=== PATIENT | male | born 1985 | race Caucasian/White ===

== ENCOUNTER 2019-02-12 11:02 | Emergency (ER) | payer OTHER ==
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
--- NOTE | 2019-02-12 12:03 | RADIOLOGY REPORT (SQ) ---
EXAM DESCRIPTION: CLAVICLE LEFT COMPLETED DATE/TIME: 02/12/2019 11:34 am REASON FOR STUDY: bed 18 +deformity +tenderness COMPARISON: None. NUMBER OF VIEWS: Two views. TECHNIQUE: Frontal and angled images were acquired of the left clavicle. LIMITATIONS: None. FINDINGS: MINERALIZATION: Normal. BONES: Acute spiral fracture mid 3rd left clavicle, with butterfly fragments present, mild over ridin g of fracture fragments SOFT TISSUES: No obvious swelling or foreign body. OTHER: No pneumothorax. No widening of the AC joint or widening of the coracoclavicular interval IMPRESSION: Acute spiral fracture mid 3rd left clavicle with butterfly fragments. Mild over riding of fracture fragments. TECHNICAL DOCUMENTATION: JOB ID: [id number] [employer]- All Rights Reserved Reading location - IP/workstation name: [email or web address]
[2019-02-12] MEDS ORDERED: FENTANYL CITRATE INJ/PF 100 MCG/2 ML AMPUL IV ONE (12:34)
[2019-02-12 13:51] VITALS: BP 143/95
== END 2019-02-12 13:51 | disposition home or self-care (01) ==
LOC: ER 11:02
DX: S42.022A Displaced fracture of shaft of left clavicle, initial encounter for closed fracture (principal); S80.212A Abrasion, left knee, initial encounter; S50.312A Abrasion of left elbow, initial encounter; S40.212A Abrasion of left shoulder, initial encounter; V28.4XXA Motorcycle driver injured in noncollision transport accident in traffic accident, initial encounter
CPT/HCPCS: 99283; 96374; 73000; L3650; J3010